=== PATIENT | male | born 1945 | race Caucasian/White ===

== ENCOUNTER 2023-10-13 10:36 | Emergency (ER) | payer MEDICARE, SELFPAY ==
[2023-10-13 10:43] VITALS: BP 138/98
--- NOTE | 2023-10-13 11:44 | ED.GENMED ---
History of Present Illness
<Haydee Taylor PA-C - Last Filed: 10/13/23 16:07>
General
Chief Complaint: Abdominal Symptoms
Source: patient
Exam Limitations: none
Time Seen by Provider: 10/13/23 11:01
Nursing documentation reviewed up to this point in time: agreed with
Travel History
Have you had any contact with someone who has COVID-19?: No
Do you have any symptoms of coronavirus? Fever > 100 degrees, chills, cough, shortness of breath, sore throat, loss of taste or smell, muscle aches, or headache?: No
History of Present Illness
History of Present Illness:
Patient is a 78-year-old male with history CHF, hypertension, A-fib on Coumadin presenting for evaluation of acute onset left lower quadrant abdominal pain. Patient states that the pain woke him up from sleep this morning around 1 AM. He describes
it as a sharp ache in his left lower quadrant with radiation around to his left lower back. No known alleviating or exacerbating factors. He reports associated nausea, chills. No fever, vomiting, diarrhea, constipation. He denies any urinary
symptoms, hematuria, or testicular pain. No chest pain or shortness of breath. He denies any recent trauma.
Patient is compliant with Coumadin. He denies any history of kidney stones. He is no history of abdominal surgeries.
Past History
<Haydee Taylor PA-C - Last Filed: 10/13/23 16:07>
Past History
ED Past Medical History: Arrthythmia and CHF
ED Past Surgical History: Other (Multiple cardioversions for atrial fibrillation.)
Social History
Personal:
Living: with family
Phy Exam
<Haydee Taylor PA-C - Last Filed: 10/13/23 16:07>
Physical Exam
Physical Exam:
General: Well appearing and non-toxic
Vitals: Hypertensive, otherwise vital signs stable; afebrile
HEENT: Atraumatic, normocephalic; pupils equal round and reactive light bilaterally, protecting airway
Neck: appears supple, no JVD
CV: Regular rate, irregular rhythm, no evidence of cyanosis
Resp: No evidence of respiratory distress, lungs clear bilaterally
Abd: Soft, mildly tender in left lower quadrant without rebound or guarding, non-distended; no CVA tenderness
Extremities: No deformities, no evidence of cyanosis or edema; DP pulses palpable bilaterally
Neuro: alert and oriented; grossly in
Psych: Normal affect
Skin: Intact, no rashes or ecchymoses
Course
<Haydee Taylor PA-C - Last Filed: 10/13/23 16:07>
Orders/Labs/Results
Orders:
Orders
10/13/23 10:53
Electrocardiogram (*1) Urgent
Reason for Study: Abdominal Pain
EKG- Treatment ONCE
10/13/23 11:38
Complete Blood Count/With Diff Urgent
Comprehensive Metabolic Panel Urgent
Lipase Urgent
10/13/23 11:43
CT Abd/pelvis W Iv Cont Urgent
Comment:
Reason For Exam: LLQ pain with radiation to back
10/13/23 11:53
Urinalysis Reflex To Culture Urgent
Date Specimen was Collected: 10/13/23
Time Specimen was Collected: 11:41
Urine Microscopic Reflex Cult Urgent
10/13/23 12:22
Prothrombin Time Urgent
Abnormal Lab Results
10/13/23 10/13/23 10/13/23
11:38 11:53 12:22
WBC 14.5 H 10^3/uL
(4.8-10.8)
MCV 97.1 H fL
(80.0-94.0)
MCH 32.9 H pg
(27.0-31.0)
RDW 14.6 H %
(11.5-14.5)
Abs Immat Gran (auto) 0.1 H 10^3/uL
(0-0.05)
Absolute Neuts (auto) 12.8 H 10^3/uL
(1.4-6.5)
Immature Gran % 0.7 H %
(0-0.5)
Neutrophils % 88.3 H %
(42.2-75.2)
Lymphocytes % 8.0 L %
(20.5-51.1)
PT 28.1 H Sec
(11.4-14.6)
BUN 22 H mg/dl
(9-20)
Glucose 125 H mg/dl
(70-99)
Urine Ketones Trace A
(Negative)
Ur Occult Blood Reflex 4+ A
(Negative)
Urine RBC 11-15 A /HPF
(0-2)
Urine Bacteria (Reflex) Few A
(Negative)
10/13/23 11:38
10/13/23 11:38
Vital Signs
Initial and Last Documented VS:
Initial Vital Signs
Temp Pulse Resp BP Pulse Ox
97.8 F 87 18 138/98 98
10/13/23 10:43 10/13/23 10:43 10/13/23 10:43 10/13/23 10:43 10/13/23 10:43
Last Documented Vital Signs
Temp Pulse Resp BP Pulse Ox
97.8 F 87 18 138/98 98
10/13/23 10:43 10/13/23 10:43 10/13/23 10:43 10/13/23 10:43 10/13/23 10:43
<Edouard Lee MD - Last Filed: 10/13/23 14:18>
Orders/Labs/Results
Orders:
Orders
10/13/23 10:53
Electrocardiogram (*1) Urgent
Reason for Study: Abdominal Pain
EKG- Treatment ONCE
10/13/23 11:38
Complete Blood Count/With Diff Urgent
Comprehensive Metabolic Panel Urgent
Lipase Urgent
10/13/23 11:43
CT Abd/pelvis W Iv Cont Urgent
Comment:
Reason For Exam: LLQ pain with radiation to back
10/13/23 11:53
Urinalysis Reflex To Culture Urgent
Date Specimen was Collected: 10/13/23
Time Specimen was Collected: 11:41
Urine Microscopic Reflex Cult Urgent
10/13/23 12:22
Prothrombin Time Urgent
Abnormal Lab Results
10/13/23 10/13/23 10/13/23
11:38 11:53 12:22
WBC 14.5 H 10^3/uL
(4.8-10.8)
MCV 97.1 H fL
(80.0-94.0)
MCH 32.9 H pg
(27.0-31.0)
RDW 14.6 H %
(11.5-14.5)
Abs Immat Gran (auto) 0.1 H 10^3/uL
(0-0.05)
Absolute Neuts (auto) 12.8 H 10^3/uL
(1.4-6.5)
Immature Gran % 0.7 H %
(0-0.5)
Neutrophils % 88.3 H %
(42.2-75.2)
Lymphocytes % 8.0 L %
(20.5-51.1)
PT 28.1 H Sec
(11.4-14.6)
BUN 22 H mg/dl
(9-20)
Glucose 125 H mg/dl
(70-99)
Urine Ketones Trace A
(Negative)
Ur Occult Blood Reflex 4+ A
(Negative)
Urine RBC 11-15 A /HPF
(0-2)
Urine Bacteria (Reflex) Few A
(Negative)
10/13/23 11:38
10/13/23 11:38
Vital Signs
Initial and Last Documented VS:
Initial Vital Signs
Temp Pulse Resp BP Pulse Ox
97.8 F 87 18 138/98 98
10/13/23 10:43 10/13/23 10:43 10/13/23 10:43 10/13/23 10:43 10/13/23 10:43
Last Documented Vital Signs
Temp Pulse Resp BP Pulse Ox
97.8 F 87 18 138/98 98
10/13/23 10:43 10/13/23 10:43 10/13/23 10:43 10/13/23 10:43 10/13/23 10:43
<Haydee Taylor PA-C - Last Filed: 10/13/23 16:07>
MDM/Problems Addressed
Differential Diagnosis Includes:
Diverticulitis, kidney stone, cystitis, pyelonephritis, muscular strain, doubt appendicitis, incarcerated hernia
MDM/Problems Addressed:
Patient is a 78-year-old male presenting for evaluation of acute onset left lower abdomen/flank pain. Symptoms started this morning around 1 AM and are associated with nausea but no vomiting. No fever, chills, diarrhea, constipation. No urinary
symptoms or hematuria. No testicular pain. Patient is mildly hypertensive, otherwise vital signs stable. Physical exam as document above. He is relatively well-appearing in no apparent distress. He does have some mild tenderness to palpation
left lower quadrant without rebound or guarding. Will check basic labs, lipase, urinalysis. Will get CT abdomen. Patient denying any antiemetic/analgesia at this time.
CBC shows leukocytosis of 14.5, otherwise no clinically significant abnormalities. CMP without any clinically significant abnormalities. Lipase normal. Lipase with findings of RBC suggesting possible kidney stone. CT abdomen pending. CT abdomen
shows left mid ureter 4.5 mm stone and 3 mm stone at the left UVJ. Attending spoke to urologist on-call who recommend discharge with trial of passage at home. Patient comfortable this plan. Will discharge with Flomax, pain control, urine
strainer. Patient advised to d/c Coumadin starting tomorrow and follow-up with urology on Tuesday morning. Return precautions discussed at length. Patient comfortable with this plan. All questions answered.
Chronic conditions affecting care:
Atrial fibrillation on warfarin, hypertension
Acute Exacerbation and/or Progression of Chronic Illness:
Acutely hypertensive
<Haydee Taylor PA-C - Last Filed: 10/13/23 16:07>
*Radiology
Radiology exam reviewed: preliminary read by ED provider and radiology read reviewed
*Pulse Oximetry
Patient hypoxic: no
*EKG
Interpreted by ED Provider?: Yes
EKG Intrepretation Date: 10/13/23
Interpretation: abnormal
Comparison EKG: changes noted
Heart Rate: 84
Rate: normal
Rhythm: a-fib
Tibbie: normal axis
Interval: normal interval
Ischemia: no ischemia
*Asphalt Paver Operator Interpretation
Rate: Asphalt Paver Operator- N/A
*Critical Care Note
Total Time (30-74mins, 75-104mins- exclusive of procedures): Not Applicable
<Haydee Taylor PA-C - Last Filed: 10/13/23 16:07>
Patient Management
Discussion with other providers: Facility Practice Specialist (urology)
ED Attending Note
<Haydee Taylor PA-C - Last Filed: 10/13/23 16:07>
-
Portions of this chart may have been created with voice recognition software.� Occasional wrong word or��sound alike� substitutions may have occurred due to the inherent limitations of voice recognition software.
<Edouard Lee MD - Last Filed: 10/13/23 14:18>
ED Attending Note
Patient seen and examined by attending physician: Yes
ED Attending Note:
HPI: 78-year-old male with a past medical history as documented notable for A-fib on Coumadin presents to the emergency department for evaluation of left flank/abdominal pain. He reports onset of symptoms last night and says it was quite intense
last night about 9/10 intensity. He says that that continued throughout most of the night this morning symptoms were less intense but still persistent he says that about 6/10. Decided to come to the emergency room for assessment. He says on the
ride to the emergency room he once again had some intense pain but it seems to have down by the time of my assessment. Pain is located in the left lower abdomen and radiates towards the left flank. No clear triggering or relieving factors
noted. Reports associated nausea but no vomiting. No diarrhea or constipation. He denies any dysuria, hematuria, change in urinary frequency. Denies any fevers or chills. Denies similar symptoms in the past. Denies prior abdominal surgeries.
ROS: Positive for flank pain, abdominal pain, nausea; negative for vomiting, diarrhea, dysuria, hematuria, change in frequency of urination, fevers, chills
Physical exam:
General: Awake, alert, oriented x3; no acute distress
Head: Normocephalic, atraumatic
Eyes: Conjunctiva normal
Throat: Airway intact, handling secretions
Neck: Trachea midline
Lungs: Breathing comfortably no distress
Heart: Regular rate
Abd: Soft, non distended, minimally tender left lower quadrant, no abdominal mass
Back: No CVA tenderness
Neuro: No gross deficits
Skin: no rash
Extremities: Warm and well-perfused
Differential diagnosis: Diverticulitis, nephrolithiasis, UTI, retroperitoneal hemorrhage, AAA somewhat less likely in a non-smoker
Medical decision [age]-year-old male presents for evaluation of left flank/abdominal pain waxing and waning since last night. Vital signs normal. Exam as above. Sent off labs including a CBC which showed a leukocytosis, CMP which showed no
clinically significant abnormalities. Urinalysis positive for blood but no pyuria to suggest infection. Sent for CT of the abdomen pelvis which showed 2 obstructing stones in the left ureter�a 4.5 mm stone in the left mid ureter and a 3 mm stone
in the distal left ureter. Discussed with urology: if patient well-appearing and pain controlled, stones are individually likely passable reasonable to trial passage with hydration, Flomax; if patient feels symptoms or not improving, low threshold
for return. Patient strong preference is to go home.
Chronic conditions affecting care: A-fib on warfarin
Acute exacerbation or progression of chronic illness: N/A
History source: Patient, spouse
Data reviewed: Prior labs
Medications/testing considered: N/A
Social determinants of health: N/A
Discussion with other providers: Urology
Discharge Plan
Departure
Patient Disposition: Home (Routine Discharge)
Date of Disposition: 10/13/23
Time of Disposition: 15:03
Patient with high blood pressure during this ER visit?: Yes
Condition: Good
Covid-19: Not Applicable
Discharge Problem:
Ureterolithiasis
Instructions: Kidney Stones (DC), BLOOD PRESSURE
Prescriptions:
New
oxycodone 5 mg tablet
5 mg PO Q8H PRN (Reason: Pain) Qty: 10 0RF
No Action
acetaminophen [Tylenol Extra Strength] 500 MG tablet
1,000 mg PO Q4HPRN PRN (Reason: cold)
propafenone [Rythmol] 300 MG tablet
300 mg PO TID
warfarin 5 MG tablet
5 mg PO DAILY
diltiazem HCl 120 MG capsule,ext.rel 24h degradable
120 mg PO DAILY
folic acid 1 MG tablet
1 mg PO DAILY
Referrals:
Bahman Espinosa Jr., MD [Active] - Next open appointment
Franco Miller MD [Family Provider] -
Activity Restrictions/Additional Instructions:
- Return to the emergency department any high fevers, severe abdominal pain, severe back pain, intractable pain, persistent nausea, worsening current symptoms, or any other concerns
-You should call the urology office early tomorrow morning to schedule appointment. They will see you in office on Tuesday.
-You should continue to take your Flomax daily. You can take Tylenol as needed for mild pain. A prescription for oxycodone has been sent to your pharmacy which you can take for more severe pain. This may cause drowsiness.
-It is important stay well-hydrated. You should strain your urine
-As recommended by urology�you should take your Coumadin tonight. Starting tomorrow morning you should discontinue your Coumadin until you follow-up with urology.
Interventions
Interventions:
*Risk Screen - Suicide Last Done: 10/13/23 11:20
*General Assessment Last Done: 10/13/23 11:20
*Neglect/Abuse Screening Last Done: 10/13/23 11:20
ED- Fall Risk Assessment Last Done: 10/13/23 11:20
*ED COVID-19 Vaccine History Last Done: 10/13/23 10:49
*Nursing Disposition Last Done: 10/13/23 15:16
EC-Yuosvt-[id number] Assessment Last Done: 10/13/23 11:20
Discharge Date and Time
Discharge Date/Time: 10/13/23 15:16
[2023-10-13 12:24] LABS: Urine Albumin Trace (Neg - Trace); Urine Bilirubin Negative (Negative); Urine Character Clear (Clear); Urine Color Yellow; Urine Glucose Negative (Negative); Urine Ketone Trace (Negative); Urine Leukocyte Negative (Negative); Urine Nitrite Negative (Negative); Urine Occult Blood 4+ (Negative); Urine Specific Gravity 1.015 (<1.030); Urine Urobilinogen Negative (Neg - 1+)
[2023-10-13 12:24] LABS: % Basophils 0.2 % (0-2); % Immature Granulocytes 0.7 % (0-0.5); % Monocytes 2.8 % (1.7-9.3); % Neutrophils 88.3 % (42.2-75.2); Absolute Immature Granulocytes 0.1 10^3/uL (0-0.05); Absolute Lymphocytes 1.2 10^3/uL (1.2-3.4); Absolute Monocytes 0.4 10^3/uL (0.1-0.6); Absolute Neutrophils 12.8 10^3/uL (1.4-6.5); Hematocrit 47.3 % (39.0-52.0); Mean Corp Hgb Conc. 33.8 g/dL (33.0-37.0); Mean Corpuscular Hgb 32.9 pg (27.0-31.0); Mean Corpuscular Volume 97.1 fL (80.0-94.0); Mean Platelet Volume 10.2 fL (7.4-10.4); Nucleated Red Blood Cells % 0 % (-); Platelet Count 224 10^3/uL (130-400); Red Blood Cell Count 4.87 10^6/uL (4.70-6.10); Red Cell Dist. Width 14.6 % (11.5-14.5); White Blood Cell Count 14.5 10^3/uL (4.8-10.8)
[2023-10-13 12:47] LABS: Urine Calcium Oxalate Crystals Present
[2023-10-13 12:47] LABS: ALT (SGPT) 19 U/L (0-50); AST (SGOT) 26 U/L (17-59); Albumin 4.5 g/dl (3.5-5.0); Alkaline Phosphatase 74 U/L (38-126); Blood Urea Nitrogen 22 mg/dl (9-20); Calcium 9.4 mg/dl (8.4-10.2); Carbon Dioxide 28 mmol/L (22-30); Chloride 102 mmol/L (98-107); Glucose 125 mg/dl (70-99); Potassium 4.2 mmol/L (3.5-5.1); Sodium 142 mmol/L (135-145); Total Bilirubin 1.1 mg/dl (0.2-1.3); Total Protein 7.2 g/dl (6.3-8.2); eGFR > 60.00
[2023-10-13 12:48] LABS: Urine Bacteria Few (Negative); Urine White Cell 0-2 /HPF (0-5)
[2023-10-13 12:50] LABS: INR 2.59; PT 28.1 Sec (11.4-14.6)
[2023-10-13 13:01] LABS: Lipase 79 U/L (23-300)
== END 2023-10-13 15:16 | disposition home or self-care (01) ==
LOC: EMR 10:36
PROVIDERS: Emergency Medicine; Physician Assistant; EMERGENCY PHYSICIAN Emergency Medicine; FAMILY PHYSICIAN Internal Medicine
DX: N20.1 Calculus of ureter (principal); I10 Essential (primary) hypertension; I48.91 Unspecified atrial fibrillation; Z79.01 Long term (current) use of anticoagulants
CPT/HCPCS: 99285; 74177; 80053; 81003; 81015; 83690; 85025; 85610; 93005; Q9967

== ENCOUNTER → 2023-10-25 13:51 | Outpatient (REF) | payer MEDICARE, SELFPAY | LOC: RAD 13:51 | PROVIDERS: ATTENDING PHYSICIAN Nurse Practitioner | DX: M54.2 Cervicalgia (principal) | CPT/HCPCS: 72050 ==

== ENCOUNTER → 2023-12-05 08:12 | Outpatient (REF) | payer MEDICARE, SELFPAY | LOC: RAD 08:12 | PROVIDERS: ATTENDING PHYSICIAN Specialist; FAMILY PHYSICIAN Internal Medicine | DX: N20.0 Calculus of kidney (principal) | CPT/HCPCS: 74176 ==

== ENCOUNTER 2025-01-23 06:08 | Day surgery (SDC) | payer MEDICARE, SELFPAY ==
[2025-01-23 07:15] VITALS: BMI 31.7
[2025-01-23 07:25] VITALS: BP 136/98
[2025-01-23 07:30] VITALS: BMI 31.7
== END 2025-01-23 10:55 | disposition home or self-care (01) ==
LOC: SDS 06:08
PROVIDERS: ATTENDING PHYSICIAN Student in an Organized Health Care Education/Training Program
DX: D12.3 Benign neoplasm of transverse colon (principal); D12.7 Benign neoplasm of rectosigmoid junction; K57.30 Diverticulosis of large intestine without perforation or abscess without bleeding; K64.0 First degree hemorrhoids; R19.5 Other fecal abnormalities; Z86.0101 Personal history of adenomatous and serrated colon polyps
CPT/HCPCS: 45385; 88305

== ENCOUNTER → 2025-04-19 08:09 | Outpatient (REF) | payer MEDICARE, SELFPAY | LOC: RCS 08:09 | PROVIDERS: ATTENDING PHYSICIAN Internal Medicine Cardiovascular Disease; FAMILY PHYSICIAN Internal Medicine | DX: I34.0 Nonrheumatic mitral (valve) insufficiency (principal) | CPT/HCPCS: 93306 ==

== ENCOUNTER 2025-05-10 06:15 | Day surgery (SDC) | payer MEDICARE, SELFPAY ==
[2025-05-10 08:42] VITALS: BP 146/106
[2025-05-10 08:53] VITALS: BMI 31.8
[2025-05-10 11:04] VITALS: BP 121/83
[2025-05-10 11:15] VITALS: BP 117/85
[2025-05-10 11:30] VITALS: BP 121/89
== END 2025-05-10 11:50 | disposition home or self-care (01) ==
LOC: SDS 06:15
PROVIDERS: ATTENDING PHYSICIAN Student in an Organized Health Care Education/Training Program
DX: Z12.11 Encounter for screening for malignant neoplasm of colon (principal); D12.2 Benign neoplasm of ascending colon; D12.5 Benign neoplasm of sigmoid colon; K57.30 Diverticulosis of large intestine without perforation or abscess without bleeding; Z86.0101 Personal history of adenomatous and serrated colon polyps; Z98.890 Other specified postprocedural states; Z79.01 Long term (current) use of anticoagulants
CPT/HCPCS: 45385; 45380; 88305

== ENCOUNTER → 2025-07-19 16:03 | Outpatient (REF) | payer MEDICARE, SELFPAY | LOC: RAD 16:03 | PROVIDERS: ATTENDING PHYSICIAN Specialist; FAMILY PHYSICIAN Internal Medicine | DX: N20.0 Calculus of kidney (principal) | CPT/HCPCS: 74176 ==